=== PATIENT | female | born 1970 | race Caucasian/White ===

== ENCOUNTER 2017-05-01 04:20 | Emergency (ER) | payer OTHER ==
[~2017-05-01] VITALS: Ht 162.6 cm; Wt 81.7 kg
[2017-05-01] MEDS ORDERED: ULTRAM 50MG TAB50 MG PO (06:16)
[2017-05-01 06:30] VITALS: BP 140/70
== END 2017-05-01 06:30 | disposition home or self-care (01) ==
LOC: M.ERS 04:20
DX: H72.92 Unspecified perforation of tympanic membrane, left ear (principal); F17.210 Nicotine dependence, cigarettes, uncomplicated; Z88.2 Allergy status to sulfonamides